=== PATIENT | male | born 1930 | race Hispanic/Latino ===

== ENCOUNTER 2018-09-25 17:13 | Inpatient (IN) | payer MEDICARE ==
[2018-09-25 17:17] VITALS: BMI 25.5
[2018-09-25] MEDS ORDERED: Sodium Chloride 0.9% 500 ML IV STA (17:49)
--- NOTE | 2018-09-25 18:34 | RAD ---
Date of service: 09/25/2018 HISTORY: Sepsis Patient COMPARISON: 12/18/2012. FINDINGS: LUNGS: No active pulmonary disease. PLEURA: No significant pleural effusion identified, no pneumothorax apparent. CARDIOVASCULAR: No radiographic findings to suggest acute or significant cardiovascular disease. Atherosclerotic calcifications identified primarily aortic arch. OSSEOUS STRUCTURES: No significant abnormalities. VISUALIZED UPPER ABDOMEN: Normal. OTHER FINDINGS: None. IMPRESSION: No active disease. No significant interval change compared to the prior examination(s).
[2018-09-25 18:35] LABS: URINE APPEARANCE SL CLOUDY (CLEAR); URINE BILIRUBIN NEGATIVE (NEGATIVE); URINE BLOOD MODERATE (NEGATIVE); URINE COLOR YELLOW (YELLOW); URINE GLUCOSE (UA) NEGATIVE (NEGATIVE); URINE LEUKOCYTE ESTERASE NEGATIVE Leu/uL (NEGATIVE); URINE PROTEIN 30 mg/dL (<30 mg/dL); URINE UROBILINOGEN 0.2 E.U./dL (<1 E.U./dL)
--- NOTE | 2018-09-25 19:01 | ED PDOC ---
Arrival/HPI - General Chief Complaint: Flu-like Symptoms Time Seen by Provider: 09/25/18 17:18 Historian: Patient - History of Present Illness Narrative History of Present Illness (Text): 09/25/18 19:06 88-year-old male reports several days of feeling fatigued, weak and bodyaches with fever today. Otherwise: (-) cough, (-) sore throat, (-) URI symptoms, (-) SOB, (-) chest pain, (-) N/V/D, (-) abdominal pain, (-) flank pain, (-) urinary symptoms, (-) recent travel, (-) sick contacts. PMRuben Hernandez Past Medical History - Cardiac Hx Cardiac Disorders: No - Pulmonary Hx Respiratory Disorders: No - Neurological Hx Neurological Disorder: No - HEENT Hx HEENT Disorder: No - Renal Hx Renal Disorder: No - Endocrine/Metabolic Hx Endocrine Disorders: No - Hematological/Oncological Hx Blood Disorders: No - Integumentary Hx Dermatological Disorder: No - Musculoskeletal/Rheumatological Hx Musculoskeletal Disorders: No - Gastrointestinal Hx Gastrointestinal Disorders: No - Genitourinary/Gynecological Hx Genitourinary Disorders: No - Psychiatric Hx Psychophysiologic Disorder: No Hx Substance Use: No - Anesthesia Hx Anesthesia: No Hx Anesthesia Reactions: No Hx Malignant Hyperthermia: No - Suicidal Assessment Feels Threatened In Home Enviroment: No Family/Social History Family/Social History: No Known Family HX Smoking Status: Unknown If Ever Smoked Hx Alcohol Use: No Hx Substance Use: No Allergies/Home Meds Allergies/Adverse Reactions: Allergies No Known Allergies Allergy (Verified 07/15/12 18:30) Home Medications: Home Meds Medication Instructions Recorded Confirmed Levothyroxine Sodium [Synthroid] 0 mg PO 07/15/12 07/15/12 Metoprolol Tartrate [Lopressor] 0 mg PO 07/15/12 07/15/12 Simvastatin 0 mg PO 07/15/12 07/15/12 Review of Systems - Review of Systems Constitutional: Fatigue, Fevers ENT: absent: Sore Throat, Rhinorrhea Respiratory: absent: SOB, Cough Cardiovascular: absent: Chest Pain, Palpitations Gastrointestinal: absent: Abdominal Pain, Diarrhea, Nausea, Vomiting Genitourinary Male: absent: Dysuria, Frequency Musculoskeletal: Arthralgias, Myalgias. absent: Back Pain, Neck Pain Skin: absent: Rash, Pruritis Neurological: absent: Headache, Dizziness Physical Exam Vital Signs Temp Pulse Resp BP Pulse Ox 09/25/18 18:43 100.9 F H 09/25/18 17:17 100.9 F H 94 H 18 142/69 99 Temperature: Febrile Blood Pressure: Normal Pulse: Regular Respiratory Rate: Normal Appearance: Positive for: Well-Appearing, Non-Toxic, Comfortable Pain Distress: None Mental Status: Positive for: Alert and Oriented X 3 - Systems Exam Head: Present: Atraumatic, Normocephalic Pupils: Present: PERRL Extroacular Muscles: Present: EOMI Conjunctiva: Present: Normal Mouth: Present: Dry Neck: Present: Normal Range of Motion Respiratory/Chest: Present: Clear to Auscultation, Good Air Exchange. No: Respiratory Distress, Accessory Muscle Use Cardiovascular: Present: Regular Rate and Rhythm, Normal S1, S2. No: Murmurs Abdomen: No: Tenderness, Distention, Peritoneal Signs Back: Present: Normal Inspection Upper Extremity: Present: Normal Inspection. No: Cyanosis, Edema Lower Extremity: Present: Normal Inspection. No: Edema Neurological: Present: GCS=15, CN II-XII Intact, Speech Normal, Motor Func Grossly Intact, Normal Sensory Function Skin: Present: Warm, Dry, Normal Color. No: Rashes Psychiatric: Present: Alert, Oriented x 3, Normal Insight, Normal Concentration Medical Decision Making ED Course and Treatment: 09/25/18 19:02 Plan: -- Labs -- IV fluids -- Urinalysis -- Flu -- EKG -- CXR -- Tylenol PO -- Reassess and disposition CXR : NAD. EKG : NSR at 90 bpm, +RBB, no acute ST changes. Influenza : (-) Labs reviewed : wbc 11, lactate 0.9, trop 0.22. UA (-) for infection. Case d/w Dr. Hernandez, agrees with plan to admit the patient, with consult to Dr. Rodriguez for cardiology. Patient given asa PO. - Lab Interpretations Lab Results: Urine Color Yellow (YELLOW) 09/25/18 18:20 Urine Appearance Sl cloudy (CLEAR) 09/25/18 18:20 Urine pH 7.0 (4.7-8.0) 09/25/18 18:20 Ur Specific Hamilton 1.010 (1.005-1.035) 09/25/18 18:20 Urine Protein 30 mg/dL (<30 mg/dL) H 09/25/18 18:20 Urine Glucose (UA) Negative mg/dL (NEGATIVE) 09/25/18 18:20 Urine Ketones Negative mg/dL (NEGATIVE) 09/25/18 18:20 Urine Blood Moderate (NEGATIVE) H 09/25/18 18:20 Urine Nitrate Negative (NEGATIVE) 09/25/18 18:20 Urine Bilirubin Negative (NEGATIVE) 09/25/18 18:20 Urine Urobilinogen 0.2 E.U./dL (<1 E.U./dL) 09/25/18 18:20 Ur Leukocyte Esterase Negative Kulwinder/uL (NEGATIVE) 09/25/18 18:20 Urine RBC 5 - 10 /hpf (0-2) H 09/25/18 18:20 Urine WBC None /hpf (0-6) 09/25/18 18:20 - RAD Interpretation Radiology Orders: 09/25/18 17:47 CHEST PORTABLE [RAD] Stat - Medication Orders Current Medication Orders: Acetaminophen (Tylenol 325mg Tab) 650 mg PO ONCE PRN PRN Reason: Fever >100.4 F Last Admin: 09/25/18 18:43 Dose: 650 mg MAR Pain/Vitals Document 09/25/18 18:43 DM (Rec: 09/25/18 18:44 DM [id number] Vitals Temperature (97.6 F-99.6 F) 100.9 F Temperature Source Oral Discontinued Medications Sodium Chloride (Sodium Chloride 0.9%) 500 mls @ 500 mls/hr IV .Q1H STA Stop: 09/25/18 18:48 Last Admin: 09/25/18 18:49 Dose: 500 mls/hr Comments: bag would not scan eMAR Start Stop Document 09/25/18 18:49 DM (Rec: 09/25/18 18:51 DM [id number]) Intravenous Solution Start Date 09/25/18 Start Time 18:49 - PA / PEARL CUTTER / Resident Statement / has reviewed & agrees with the documentation as recorded. Disposition/Present on Arrival - Present on Arrival Any Indicators Present on Arrival: No History of DVT/PE: No History of Uncontrolled Diabetes: No Urinary Catheter: No History of Decub. Ulcer: No History Surgical Site Infection Following: None - Disposition Have Diagnosis and Disposition been Completed?: Yes Diagnosis: Fever, Elevated troponin, NSTEMI (non-ST elevated myocardial infarction) Disposition: HOSPITALIZED Disposition Time: 20:00 Patient Plan: Admission (to remote tele) Patient Problems: Current Active Problems Problem Status Onset Fever Acute Elevated troponin Acute NSTEMI (non-ST elevated myocardial infarction) Acute Condition: STABLE
[2018-09-25 19:16] LABS: INR 1.15; PARTIAL THROMBOPLASTIN TIME 32.8 Seconds (25.1-36.5); PROTHROMBIN TIME 13.1 SECONDS (9.4-12.5)
[2018-09-25 19:18] LABS: ALT/SGPT 21 U/L (7-56); AST/SGOT 35 U/L (17-59); BLOOD UREA NITROGEN 22 mg/dL (7-21); CALCIUM 8.5 mg/dL (8.4-10.5); GFR NON-AFRICAN AMERICAN > 60
[2018-09-25 19:33] LABS: TROPONIN I 0.22 ng/mL
[2018-09-25 19:35] LABS: HEMOGLOBIN 11.3 g/dL (14.0-18.0); MEAN CELL VOLUME 90.1 fl (80.0-105.0); RBC 3.85 10^6/uL (3.5-6.1); WHITE BLOOD COUNT 11.5 10^3/uL (4.5-11.0)
[2018-09-25 19:36] LABS: BASO % 0.1 % (0.0-3.0); EOS % 0.1 % (1.5-5.0); GRAN % 87.3 % (50.0-68.0); LYMPH # 0.6 (1.2-3.4); LYMPH % 5.2 % (22.0-35.0); MEAN CORPUSCULAR HEMOGLOBIN 29.4 pg (25.0-35.0); MEAN CORPUSCULAR HGB CONC 32.6 g/dl (31.0-37.0); MONO % 7.3 % (1.0-6.0); RED CELL DISTRIBUTION WIDTH 13.8 % (11.5-14.5)
[2018-09-25 19:37] LABS: BASO # 0.01 K/mm3 (0.0-2.0); MONO # 0.8 (0.1-0.6)
--- NOTE | 2018-09-25 20:18 | CARD ---
APPROVED REPORT Date of service: 09/25/2018 EKG Measurement Heart [id number] <Conclusion> Normal sinus rhythm Right bundle branch block Abnormal ECG
[2018-09-25 20:21] LABS: VENOUS BLOOD GAS BASE EXCESS 1.5 mmol/L (0.0-2.0); VENOUS BLOOD GAS PO2 201 mm/Hg (30-55); VENOUS BLOOD PH 7.43 (7.32-7.43)
[2018-09-26 07:05] VITALS: TEMP 98.6
[2018-09-26 08:33] VITALS: PULSE 74; O2SAT 96
[2018-09-26 09:05] VITALS: BP 133/72; RESP 18
[2018-09-26] MEDS ORDERED: Enoxaparin 40 mg Syringe SC SCH (10:00)
--- NOTE | 2018-09-26 11:17 | CP.PCM.APN ---
Subjective - Date & Time of Evaluation Date of Evaluation: 09/26/18 Time of Evaluation: 10:15 - Subjective Subjective: pt seen sitting in chair in room in NAD pt has cough but reports is a persistent cough , not new per pt Pt states he refused stress test ordered [facility]_ negative , pt states after tylenol symptoms resolved Review of Systems - Constitutional Constitutional: absent: As Per HPI, Anorexia, Chills, Daytime Sleepiness, Excessive Sweating, Fatigue, Fever, Frequent Falls, Headache, Increased Appetite, Lethargy, Malaise, Night Sweats, Snoring, Sleep Apnea, Weight Gain, Weight Loss, Weakness, Other - Cardiovascular Cardiovascular: absent: As Per HPI, Acrocyanosis, Chest Pain, Chest Pain at Rest, Chest Pain with Activity, Claudication, Diaphoresis, Dyspnea, Dyspnea on Exertion, Edema, Irregular Heart Rhythm, Pain Radiating to Arm/Neck/Jaw, Leg Edema, Leg Ulcers, Lightheadedness, Orthopnea, Palpitations, Paroxysmal Nocturnal Dyspnea, Pedal Edema, Radiating Pain, Rapid Heart Rate, Slow Heart Rate, Syncope, Other - Respiratory Respiratory: Cough (pt states is persistent ) Objective - Vital Signs/Intake and Output Vital Signs (last 24 hours): Temp Pulse Resp BP Pulse Ox 98.6 F 74 18 133/72 96 09/26/18 06:00 09/26/18 09:49 09/26/18 09:04 09/26/18 09:49 09/26/18 09:04 Intake and Output: 09/26/18 09/26/18 06:59 18:59 Intake Total 360 Output Total 800 Balance -440 - Medications Medications: Current Medications Acetaminophen (Tylenol 325mg Tab) 650 mg PO ONCE PRN PRN Reason: Fever >100.4 F Last Admin: 09/25/18 18:43 Dose: 650 mg Aspirin (Aspirin Chewable) 81 mg PO DAILY [facility] Last Admin: 09/26/18 09:49 Dose: 81 mg Atorvastatin Calcium (Lipitor) 20 mg PO DIN [facility] Enoxaparin Sodium (Lovenox) 40 mg SC DAILY [facility]; Protocol Last Admin: 09/26/18 09:49 Dose: 40 mg Levothyroxine Sodium (Synthroid) 25 mcg PO 0600 [facility] Metoprolol Tartrate (Lopressor) 25 mg PO BID [facility] Last Admin: 09/26/18 09:49 Dose: 25 mg - Labs Labs: 09/25/18 19:00 09/25/18 19:00 PT 13.1 SECONDS (9.4-12.5) H 09/25/18 19:00 INR 1.15 09/25/18 19:00 APTT 32.8 Seconds (25.1-36.5) 09/25/18 19:00 - Constitutional Appears: No Acute Distress - Head Exam Head Exam: NORMAL INSPECTION, NORMOCEPHALIC - Eye Exam Eye Exam: Normal appearance Pupil Exam: PERRL - ENT Exam ENT Exam: Mucous Membranes Moist - Respiratory Exam Respiratory Exam: Decreased Breath Sounds, NORMAL BREATHING PATTERN - Cardiovascular Exam Cardiovascular Exam: +S1, +S2 - GI/Abdominal Exam GI & Abdominal Exam: Soft - Neurological Exam Neurological Exam: Alert, Awake, Oriented x3 - Psychiatric Exam Psychiatric exam: Normal Affect, Normal Mood - Skin Skin Exam: Dry, Intact Assessment and Plan - Assessment and Plan (Free Text) Plan: Troponin I 0.24 ng/mL H* 09/26/18 02:22 Impressions Chest X-Ray 09/25/18 17:47 IMPRESSION: No active disease. No significant interval change compared to the prior examination(s). Cardiology / EKG Studies 09/25/18 17:47 ELECTROCARDIOGRAM Stat Comment: Reason For Exam: Sepsis Patient 88 yr old white male with pmh sig for cad with stents per patient interview, htn, hld , admit with episode of fever, weakness and body aches with troponins 0.22 and 0.24 admitted with cardiac and sepsis eval elevated trop cardiology eval with stress test pt refused stress test EKG - NSR , RBBB fever resolved, afebrile BC and UC pending cxr- no active disease Pt awaiting PMD to discuss plan / dc vs transfer to [place] er pt. Will continue to follow
--- NOTE | 2018-09-26 18:46 | CON ---
DATE: 09/26/2018 REASON FOR CONSULTATION AND FOLLOWUP: Positive troponin, history of coronary artery disease, status post stent, admitted for flu-like symptoms. BRIEF CLINICAL HISTORY: This is an 88-year-old with a past medical history significant for coronary artery disease status post stent 10 years ago 3 stent at transferred to [facility] for stent. History of some head and neck and status post radiation 7 years ago, who feels flu like symptoms, congestion, dizziness, came to the emergency room. In emergency room, troponin was positive. The patient denies any chest pain, shortness of breath, any palpitations, walk one mile and he walks faster sometimes get short winded, but otherwise if he pace normal, does not get any chest pain or shortness of breath. PAST MEDICAL HISTORY: Significant for coronary artery disease, status post stent 10 years ago in a [facility], started catheter and transferred to [facility] for PTCA, history of hypertension, hyperlipidemia, hypothyroidism, also past history also significant for head and neck cancer status post radiation 7 years ago. 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 FAMILY HISTORY: Noncontributory. ALLERGIES: NO KNOWN DRUG ALLERGIES. CURRENT MEDICATIONS: The patient is taking simvastatin, metoprolol tartrate,and levothyroxine. [facility] patient [facility], [facility]. REVIEW OF SYSTEMS: As per HPI. PHYSICAL EXAMINATION GENERAL: Height of the patient 5 feet 7 inches, weight of the patient 163 pounds, and body mass index is 25.5 kg/m2. VITAL SIGNS: Temperature afebrile, heart rate 74, and blood pressure 133/72. HEENT: PERRLA intact. Extraocular muscles are intact. NECK: Supple. No carotid bruit. No thyromegaly. CHEST: Clear to auscultation. HEART: S1 and S2 regular. ABDOMEN: Soft. EXTREMITIES: Clubbing, cyanosis negative. LABORATORY DATA: Blood workup; WBC 11.5, hemoglobin 11.8, hematocrit 34.7, and platelet count 171. Chemistry shows sodium 135, potassium 4.5, chloride 119, carbon dioxide 28, anion gap of 13, BUN . Troponin is 0.02. EKG showed normal sinus, right bundle branch block. IMPRESSION: An 88-year-old male with past medical history significant for coronary artery disease, hypertension, hyperlipidemia, hypothyroidism, status post coronary artery stent 10 years ago, history of head and neck cancer status post radiation 7 years ago, hard of hearing admitted with flu-like symptoms, borderline positive troponin, mildly elevated. The patient is sympathomimetic. RECOMMENDATIONS: We will get echo and stress test. Further recommendation after echo and troponin trend. The patient is agreeable proceed for a stress test. Further recommendation after the stress test hemoglobin A1c. Thank you Dr. Hernandez for providing us the opportunity in taking care of your patient,Barbra Abarca. An Rodriguez MD
--- NOTE | 2018-09-26 20:30 | HP ---
DATE OF EXAM: 09/26/2018 HISTORY OF PRESENT ILLNESS: The patient is an 88-year-old male admitted through the emergency department on 09/25/2018 with complaints of several days of fatigue and generalized body aches. He denies any chest pain or shortness of breath, but was found on laboratory test to have an elevated troponin level of 0.22. He was subsequently admitted to the telemetry unit for further evaluation and management. PAST MEDICAL HISTORY: Includes coronary artery disease, status post PTCA x3. He has a history of hypertension. PAST SURGICAL HISTORY: Includes carcinoma of the larynx several years ago, status post radiation treatment. CURRENT MEDICATIONS: Include omeprazole 20 mg daily, Zocor 80 mg daily, Imdur 30 mg daily, hydrochlorothiazide 25 mg daily, Flomax 0.4 mg daily, allopurinol 100 mg daily, and Synthroid 125 mcg daily. ALLERGIES: THE PATIENT HAS NO KNOWN DRUG ALLERGIES. SOCIAL HISTORY: He has a history of tobacco use in the remote past. There is no history of alcohol or drug abuse. FAMILY HISTORY: He reports no family history. 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 REVIEW OF SYSTEMS: The patient denies any chest pain, shortness of breath, swelling of the legs, or edema. There is no nausea. No vomiting. No diarrhea. No melena. No bright red blood per rectum. No rash or jaundice. No fevers. No chills. PHYSICAL EXAMINATION: GENERAL: The patient is a well-developed male in no acute distress. VITAL SIGNS: Blood pressure 133/72, pulse 74, temperature 98.6, and respiratory rate 18. HEENT: Head is normocephalic and atraumatic. Pupils equal, round, and reactive to light. Extraocular movements intact. NECK: Supple with no thyromegaly. No carotid bruit. No adenopathy. LUNGS: Clear. HEART: Regular rate and rhythm. ABDOMEN: Soft and nontender. Bowel sounds are normoactive. EXTREMITIES: Without cyanosis, clubbing or edema. NEUROLOGIC: The patient is awake and oriented x3 without focal sensory or motor deficits. SKIN: Warm and dry. LABORATORY DATA: WBC 11.5, hemoglobin 11.3, and hematocrit 34.7. Sodium 135, potassium 4.4, chloride 99, CO2 of 28, BUN 22, creatinine 1.1, and glucose 117. Troponin is elevated at 0.22 and 0.24. Chest x-ray shows no active disease. IMPRESSION: 1. Coronary artery disease, rule out acute myocardial infarct/ischemia. 2. Hypertension. 3. Hypothyroidism. 4. History of carcinoma of the larynx. PLAN: The patient is admitted to the telemetry unit. We will obtain Cardiology consultation, Dr. Rodriguez/Hung, social work for discharge planning. Kevin Hernandez JD/
--- NOTE | 2018-09-26 21:09 | DS ---
HOSPITAL COURSE: The patient is an 88-year-old male admitted through the emergency department with fatigue and generalized weakness, was found to have an elevated troponin level of 0.2 and 0.24 respectively. The patient has a known history of coronary artery disease status post PTCA x3. He received his Cardiology followup at the [facility] in [place], and refused any further workup or intervention at [facility] and signed out against medical advice and order to pursue further workup at the [facility]. Physical examination and vital signs are as per history and physical dictated today. IMPRESSION: 1. Elevated troponin level/history of coronary artery disease, rule out acute myocardial infarct or ischemia. 2. Hypertension. 3. Hypothyroidism. DISCHARGE MEDICATIONS: The patient was discharged on his home medications including Imdur 30 mg, hydrochlorothiazide 25 mg, Flomax 0.4 mg, Zocor 80 mg and Synthroid 125 mcg daily. PLAN: He was advised to continue a heart-healthy diet. Activity, ad libitum. Plan is to follow up with the OR. He was advised of risks of myocardial infarction and prior to leaving [place], but refused any further treatment here and is aware of the risks of signing against medical advice. Kevin Hernandez JD/
[2018-09-27] MEDS ORDERED: Levothyroxine 25 MCG TAB PO SCH (06:00)
== END 2018-09-26 16:03 | disposition left against medical advice (07) | DRG 282 ==
LOC: ED 17:13 → ERH 20:15 → 2RSO 23:13
PROVIDERS: ADMIT Internal Medicine; ATTEND Internal Medicine
DX: I21.4 Non-ST elevation (NSTEMI) myocardial infarction (principal); R50.9 Fever, unspecified; R53.1 Weakness; I25.10 Atherosclerotic heart disease of native coronary artery without angina pectoris; E78.5 Hyperlipidemia, unspecified; I10 Essential (primary) hypertension; E89.0 Postprocedural hypothyroidism; Z77.090 Contact with and (suspected) exposure to asbestos; Z85.21 Personal history of malignant neoplasm of larynx; Z92.3 Personal history of irradiation; Z95.5 Presence of coronary angioplasty implant and graft